=== PATIENT | female | born 2000 | race Caucasian/White ===

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

== ENCOUNTER 2022-04-09 16:30 | Emergency (ER) | payer OTHER | END 2022-04-09 17:02 | disposition home or self-care (01) | LOC: ERS 16:30 | DX: H65.92 Unspecified nonsuppurative otitis media, left ear (principal); F17.290 Nicotine dependence, other tobacco product, uncomplicated; Z79.899 Other long term (current) drug therapy | CPT/HCPCS: 99282 ==

== ENCOUNTER 2023-04-20 12:59 | Emergency (ER) | payer MEDICAID, OTHER, SELFPAY ==
[2023-04-20 13:43] LABS: Bacteria/HPF 3+ HPF (None Seen); Bilirubin Negative (Negative); Blood, Urine 3+ (Negative); CAUTI Indications for Culture Dysuria,urgency,freq; Clarity Extra Turbid (Clear); Glucose, Urine (Dipstick) Normal (Negative); Ketone, Urine Negative (Negative); Leukocyte 500 Leu/uL (Negative); Nitrite 1+ (Negative); Protein, Urine (Dipstick) 30 mg/dL (Neg-Trace); Specific Gravity, Urine 1.017 (1.002-1.036); Squamous Epithelial 0-3 HPF (0-3); Urobilinogen Normal mg/dL (Less than 2); WBC/HPF Greater than 50 HPF (0-3); pH, Urine 6.5 (5.0-9.0)
[2023-04-20 13:52] LABS: Urine Culture Reflex Yes Yes
[2023-04-20] MEDS ORDERED: cefTRIAXone (ROCEPHIN) 250 MG VIAL ONE (14:02)
[2023-04-20] MEDS ORDERED: Lidocaine 1% PF 5 ML VIAL ONE (14:02)
[2023-04-20] MEDS ORDERED: Acetaminophen/Codeine 30-300mg Tablet ONE (14:02)
== END 2023-04-20 14:24 | disposition home or self-care (01) ==
LOC: ERS 12:59
DX: N30.00 Acute cystitis without hematuria (principal); F17.290 Nicotine dependence, other tobacco product, uncomplicated; Z79.899 Other long term (current) drug therapy
CPT/HCPCS: 81001; 87077; 87086; 87186; 96372; 99283; J0696

== ENCOUNTER 2023-05-23 15:06 | Emergency (ER) | payer OTHER ==
[2023-05-23] MEDS ORDERED: Dexamethasone 4 MG TAB ONE (15:59)
[2023-05-23] MEDS ORDERED: Ipratropium/Albuterol 3 ML NEB ONE (16:13)
[2023-05-23] MEDS ORDERED: HYDROcodone/Acetaminophen 5/325 mg Tablet ONE (17:31)
[2023-05-23 17:35] LABS: SARS-CoV-2 NAA Rapid Test Not Detected (NotDetected)
== END 2023-05-23 18:14 | disposition home or self-care (01) ==
LOC: ERS 15:06
DX: J45.909 Unspecified asthma, uncomplicated (principal); Z20.822 Contact with and (suspected) exposure to COVID-19
CPT/HCPCS: 71045; 93005; 94640; J7620; J8540